=== PATIENT | female | born 1990 | race African-American/Black ===

== ENCOUNTER 2018-02-22 14:52 | Emergency (ER) | payer SELFPAY ==
[~2018-02-22] VITALS: Ht 175.3 cm; Wt 113.6 kg
[2018-02-22 15:07] VITALS: BP 134/87; Ht 175.3 cm; Wt 113.6 kg
[2018-02-22] MEDS ORDERED: PREDNISONE20 MG PO (16:17)
[2018-02-22] MEDS ORDERED: AMOXICILLIN500 M1 PO (16:17)
[2018-02-22] MEDS ORDERED: PHENERGAN DM SYR5 ML PO (16:18)
== END 2018-02-22 17:10 | disposition home or self-care (01) ==
LOC: D.ER 14:52
DX: J02.9 Acute pharyngitis, unspecified (principal); M79.18 Myalgia, other site

== ENCOUNTER 2019-04-16 09:09 | Emergency (ER) | payer SELFPAY ==
[~2019-04-16] VITALS: Ht 175.3 cm; Wt 113.6 kg
[~2019-04-16 09:09] MED LIST: AMOXICILLIN500 M1 PO; PHENERGAN DM SYR5 ML PO; PREDNISONE20 MG PO
[2019-04-16 09:17] VITALS: Ht 175.3 cm; Wt 113.6 kg
[2019-04-16] MEDS ORDERED: ZPAK PO (10:22)
[2019-04-16] MEDS ORDERED: STERAPRED DS 1010 MG PO (10:22)
[2019-04-16 10:48] VITALS: BP 124/80
== END 2019-04-16 10:49 | disposition home or self-care (01) ==
LOC: D.ER 09:09
DX: J02.9 Acute pharyngitis, unspecified (principal)

== ENCOUNTER 2019-04-28 16:00 | Emergency (ER) | payer SELFPAY ==
[~2019-04-28 16:00] MED LIST changes: +STERAPRED DS 1010 MG PO; +ZPAK PO
[2019-04-28 16:21] VITALS: BP 160/78; Ht 175.3 cm
[2019-04-28] MEDS ORDERED: DOXYCYCLINE HY100 M2 PO (18:56)
[2019-04-28] MEDS ORDERED: CIPRO HC OTIC S10 ML EACH EAR (18:56)
== END 2019-04-28 19:07 | disposition home or self-care (01) ==
LOC: D.ER 16:00
DX: H66.93 Otitis media, unspecified, bilateral (principal); J32.9 Chronic sinusitis, unspecified

== ENCOUNTER 2019-10-18 10:44 | Emergency (ER) | payer SELFPAY ==
[~2019-10-18] VITALS: Ht 177.8 cm; Wt 113.6 kg
[~2019-10-18 10:44] MED LIST changes: +CIPRO HC OTIC S10 ML EACH EAR; +DOXYCYCLINE HY100 M2 PO
[2019-10-18 10:54] VITALS: Ht 177.8 cm; Wt 113.6 kg
[2019-10-18 11:16] LABS: BASOPHILS 0.3 % (0-2); EOSINOPHILS 3.8 % (0-7); HEMATOCRIT 40.1 % (36.0-48.0); HEMOGLOBIN 13.1 g/dL (12-16); IMMATURE GRANULOCYTES 0.3 % (0-5); LYMPHOCYTES 36.9 % (15-50); MCH 27.8 pg (26.0-34.0); MCHC 32.7 g/dL (31.0-37.0); MCV 85.1 fL (80.0-100.0); MEAN PLATELET VOLUME 9.8 fL (7.4-10.4); MONOCYTES 6.4 % (2-11); NEUTROPHILS 52.3 % (40-80); PLATELET COUNT 386 10x3/uL (130-400); RBC 4.71 10x6/uL (4.00-5.40); WBC 7.3 10x3/uL (4.8-10.8)
[2019-10-18 11:29] LABS: CALC OSMOLALITY 272 mosm/kg (275-300); CALCIUM 9.3 mg/dL (8.5-10.1); CARBON DIOXIDE 24.7 mmol/L (21.0-32.0); CHLORIDE - SERUM 103 mmol/L (98-107); CREATININE - SERUM 0.7 mg/dL (0.6-1.3); GLUCOSE 102 mg/dL (74-106); POTASSIUM - SERUM 3.9 mmol/L (3.5-5.1); SODIUM 137 mmol/L (136-145); UREA NITROGEN 9 mg/dL (7-18); eGFR NON AFRICAN AMERICAN > 90 mL/min (90-120)
[2019-10-18 11:33] LABS: APTT 25.8 SECONDS (22.8-39.4); INR 1.07 (0.85-1.17); PROTIME 13.9 SECONDS (11.6-15.0)
[2019-10-18 11:52] LABS: ALBUMIN 3.8 g/dL (3.4-5.0); ALKALINE PHOSPHATASE 84 U/L (30-120); ALT (SGPT) 75 U/L (10-68); BILIRUBIN - TOTAL 0.48 mg/dL (0.2-1.3); CKMB 1.2 U/L (0.0-3.6); CREATINE KINASE 185 UL (21-215); MAGNESIUM - SERUM 2.2 mg/dL (1.8-2.4); PROTEIN - SERUM 7.9 g/dL (6.4-8.2); TROPONIN-I < 0.017 ng/mL (0.000-0.060)
[2019-10-18] MEDS ORDERED: OMEPRAZOLE20 M1 PO (12:59)
[2019-10-18] MEDS ORDERED: NAPROSYN500 MG PO (12:59)
[2019-10-18 13:20] VITALS: BP 138/92
== END 2019-10-18 13:20 | disposition home or self-care (01) ==
LOC: D.ER 10:44
PROVIDERS: Family Medicine
DX: R07.89 Other chest pain (principal); M25.511 Pain in right shoulder